=== PATIENT | female | born 1985 | race Caucasian/White ===

== ENCOUNTER 2017-02-26 19:13 | Inpatient (IN) | payer MEDICAID, OTHER ==
[~2017-02-26] VITALS: Ht 154.9 cm; Wt 75.2 kg
[2017-02-26] MEDS ORDERED: DICY10 PO (19:38)
[2017-02-26] MEDS ORDERED: MORP30 PO (19:38)
[2017-02-26 19:41] LABS: GLUCOSE COMMENT 1 Doctor Notified; GLUCOSE,POINT OF CARE 92 MG/DL (70-110)
[2017-02-26 19:42] LABS: BASOPHILS # (AUTO) 0.02 K/uL (0.00-0.20); BASOPHILS % (AUTO) 0.3 % (0.0-2.0); EOSINOPHILS # (AUTO) 0.15 K/uL (0.00-0.70); EOSINOPHILS % (AUTO) 1.94 % (1.0-6.0); HEMATOCRIT 38.5 % (36-46); HEMOGLOBIN 12.9 g/dL (12.0-16.0); LYMPHOCYTES # (AUTO) 1.6 K/uL (1.0-4.8); LYMPHOCYTES % (AUTO) 21.6 % (22.0-44.0); MEAN CORPUSCULAR HEMOGLOBIN 29.3 pg (26.0-34.0); MEAN CORPUSCULAR HGB CONC 33.6 G/dL (31.0-37.0); MEAN CORPUSCULAR VOLUME 87 fL (80-100); MONOCYTES # (AUTO) 0.5 K/uL (0.1-1.0); MONOCYTES % (AUTO) 7.2 % (2.0-9.0); NEUTROPHILS # (AUTO) 5.2 K/uL (1.8-7.7); NEUTROPHILS % (AUTO) 68.9 % (40.0-70.0); PLATELET COUNT (AUTO) 245 K/uL (150-450); RED BLOOD CELL COUNT(AUTO) 4.42 MIL/uL (4.00-5.20); RED CELL DISTRIBUTION WIDTH 13.2 % (11.5-14.5); WHITE BLOOD COUNT (AUTO) 7.5 K/uL (4.5-11.0)
[2017-02-26 19:53] LABS: ANION GAP 9 mmol/L (8-16); CALCIUM, TOTAL 8.7 mg/dL (8.8-10.5); CARBON DIOXIDE 25 mmol/L (22-29); CHLORIDE 106 mmol/L (98-107); CREATININE 0.63 mg/dL (0.60-1.30); GLOMERULAR FILTR. RATE CALC > 60 mL/min (>60); SODIUM SERUM 140 mmol/L (136-145); UREA NITROGEN, BLOOD 16 mg/dL (7-18)
[2017-02-26 19:59] LABS: ALANINE AMINOTRANSFERASE 45 U/L (12-78); ALBUMIN 3.7 g/dL (3.4-5.0); ASPARTATE AMINOTRANSFERASE 24 U/L (15-37); BILIRUBIN,TOTAL 0.4 mg/dL (0.1-1.0); TOTAL PROTEIN, SERUM 7.6 g/dL (6.4-8.2)
[2017-02-26 20:08] LABS: SALICYLATE < 0.2 mg/dL (2.8-20.0)
[2017-02-26 20:45] LABS: ACETAMINOPHEN < 2 mcg/mL (10-30)
[2017-02-26] MEDS ORDERED: HALOPERIDOL 5 MG TABLET PO PRN (20:45)
[2017-02-26] MEDS ORDERED: LORazepam 2 MG TABLET PO PRN (20:45)
[2017-02-26] MEDS ORDERED: ZOLPIDEM TARTRATE 10 MG TABLET PO PRN (20:45)
[2017-02-27 03:25] VITALS: BP 117/71
[2017-02-27 04:36] LABS: APPEARANCE,URINE CLEAR (CLEAR); GLUCOSE, URINE (UA) NEGATIVE (NEGATIVE); KETONES,URINE TRACE mg/dL (NEGATIVE); LEUKOCYTE ESTERASE ,URINE NEGATIVE (NEGATIVE); OCCULT BLOOD,URINE SMALL (NEGATIVE); PH,URINE 6.5 (5.0-8.0); PROTEIN,URINE NEGATIVE (NEGATIVE)
[2017-02-27 04:39] LABS: ADD UA MICROSCOPIC YES
[2017-02-27 05:03] LABS: SQUAMOUS EPITHELIAL CELL,UR Rare /LPF (None Seen)
[2017-02-27 09:56] VITALS: BP 128/85
[2017-02-27] MEDS: MIRTAZAPINE 15 MG TABLET PO SCH (20:57)
[2017-02-27 21:34] VITALS: BP 126/81
[2017-02-28] MEDS ORDERED: IBUPROFEN 400 MG TABLET PO PRN ×2 (06:45→21:30)
[2017-02-28] MEDS ORDERED: ACETAMINOPHEN 325 MG TABLET PO PRN ×2 (06:45→21:30)
[2017-02-28 09:00] VITALS: BP 116/86
[2017-02-28 20:00] VITALS: BP 114/54
[2017-02-28] MEDS: MIRTAZAPINE 15 MG TABLET PO SCH (20:22)
[2017-03-01 09:14] VITALS: BP 121/75
[2017-03-01] MEDS ORDERED: MIRT15 PO (14:07)
== END 2017-03-01 16:15 | disposition home or self-care (01) | DRG 751 ==
LOC: EMS 19:15 → 3EI 02-27 01:55
PROVIDERS: ADMIT Psychiatry & Neurology Psychiatry; ATTEND Psychiatry & Neurology Psychiatry
DX: F33.2 Major depressive disorder, recurrent severe without psychotic features (principal); R45.851 Suicidal ideations; F41.9 Anxiety disorder, unspecified; T40.2X2A Poisoning by other opioids, intentional self-harm, initial encounter; R31.9 Hematuria, unspecified; G89.4 Chronic pain syndrome; Z91.5 Personal history of self-harm; Z62.819 Personal history of unspecified abuse in childhood; Z87.442 Personal history of urinary calculi; Z83.3 Family history of diabetes mellitus; Z82.49 Family history of ischemic heart disease and other diseases of the circulatory system; Y93.89 Activity, other specified; Y92.89 Other specified places as the place of occurrence of the external cause; Y99.8 Other external cause status
CPT/HCPCS: 51702; 82962; 84443; 93005; 99285; G0480; G0481